=== PATIENT | male | born 1985 | race Caucasian/White ===

== ENCOUNTER 2018-09-21 11:11 | Emergency (ER) | payer MEDICAID ==
[~2018-09-21] VITALS: Ht 177.8 cm; Wt 95.7 kg
[2018-09-21] MEDS ORDERED: ALPR2TAB2 PO (11:34)
[2018-09-21] MEDS ORDERED: PROMETHAZINE 25 MG/ML, 1ML IM ONE (12:30)
[2018-09-21] MEDS ORDERED: KETOROLAC 30 MG/1 ML IM ONE (12:30)
[2018-09-21] MEDS ORDERED: PROMETHAZINE 25 MG/ML, 1ML ONE (12:47)
[2018-09-21] MEDS ORDERED: KETOROLAC 30 MG/1 ML ONE (12:48)
[2018-09-21 14:17] VITALS: BP 128/78
== END 2018-09-21 14:19 | disposition home or self-care (01) ==
LOC: ED 14:13
DX: F19.939 Other psychoactive substance use, unspecified with withdrawal, unspecified (principal)
CPT/HCPCS: 96372; 99284; J1885; J2550

== ENCOUNTER 2019-02-20 17:58 | Emergency (ER) | payer MEDICAID ==
[~2019-02-20] VITALS: Ht 180.3 cm; Wt 93.2 kg
[~2019-02-20 17:58] MED LIST: ALPR2TAB2 PO
[2019-02-20 18:03] VITALS: BP 149/80
[2019-02-20 18:31] LABS: BASOPHILS # (AUTO) 0.07 x10^3/uL (0-0.1); BASOPHILS % (AUTO) 1 % (0-1); EOSINOPHILS # (AUTO) 0.25 x10^3/uL (0-0.4); EOSINOPHILS % (AUTO) 3 % (1-7); LYMPHOCYTES # (AUTO) 1.94 x10^3/uL (1-3.4); LYMPHOCYTES % (AUTO) 23 % (22-44); MD NO; MEAN CORPUSCULAR HEMOGLOBIN 28.3 pg (27.5-34.5); MEAN CORPUSCULAR HGB CONC 33.1 g/dL (33.2-36.2); MEAN CORPUSCULAR VOLUME 85.6 fL (81-97); MEAN PLATELET VOLUME 8.3 fL (7.4-10.4); MONOCYTES # (AUTO) 0.82 x10^3/uL (0.2-0.8); MONOCYTES % (AUTO) 10 % (2-9); NEUTROPHILS # (AUTO) 5.38 x10^3/uL (1.8-6.8); NEUTROPHILS % (AUTO) 64 % (42-75); PLATELET COUNT 251 x10^3/uL (130-400); RED CELL DISTRIBUTION WIDTH 13.8 % (9.4-14.8)
--- NOTE | 2019-02-20 18:36 | NUR ---
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
== END 2019-02-20 19:12 | disposition left against medical advice (07) ==
LOC: ED 19:06
DX: M54.5 Low back pain (principal)
CPT/HCPCS: 36415; 72110; 85025; 99284

== ENCOUNTER 2019-02-21 02:14 | Emergency (ER) | payer MEDICAID ==
[~2019-02-21] VITALS: Ht 180.3 cm; Wt 80.0 kg
[2019-02-21 02:18] VITALS: BP 127/71
--- NOTE | 2019-02-21 03:01 | NUR ---
PT SLEEPING ON GURNEY, THIS RN ATTEMPTED MULTIPLE TIMES TO WAKE PT, PT NOT COOPERATIVE . PT ADVISED OF NEED FOR URINE SAMPLE AND PROVIDED WITH URINE CUP.
[2019-02-21 03:41] LABS: BASOPHILS # (AUTO) 0.07 x10^3/uL (0-0.1); BASOPHILS % (AUTO) 1 % (0-1); EOSINOPHILS # (AUTO) 0.12 x10^3/uL (0-0.4); EOSINOPHILS % (AUTO) 2 % (1-7); LYMPHOCYTES # (AUTO) 1.97 x10^3/uL (1-3.4); LYMPHOCYTES % (AUTO) 24 % (22-44); MD NO; MEAN CORPUSCULAR HEMOGLOBIN 28.5 pg (27.5-34.5); MEAN CORPUSCULAR HGB CONC 33.5 g/dL (33.2-36.2); MEAN CORPUSCULAR VOLUME 85.2 fL (81-97); MEAN PLATELET VOLUME 8.3 fL (7.4-10.4); MONOCYTES # (AUTO) 0.82 x10^3/uL (0.2-0.8); MONOCYTES % (AUTO) 10 % (2-9); NEUTROPHILS % (AUTO) 64 % (42-75); PLATELET COUNT 248 x10^3/uL (130-400); RED BLOOD COUNT 5.15 x10^6/uL (4.38-5.82); RED CELL DISTRIBUTION WIDTH 13.8 % (9.4-14.8)
--- NOTE | 2019-02-21 03:46 | NUR ---
URINE SPECIMEN PROVIDED BY PT, SENT TO LAB
[2019-02-21 03:47] LABS: ALANINE AMINOTRANSFERASE 65 U/L (12-78); ALBUMIN 4.2 g/dL (3.4-5.0); ANION GAP 7 mmol/L (5-15); CALCIUM 9.4 mg/dL (8.5-10.1); CHLORIDE 108 mmol/L (98-107); CREATININE 0.89 mg/dL (0.7-1.3)
[2019-02-21 03:50] LABS: ALKALINE PHOSPHATASE 71 U/L (45-117); BILIRUBIN,TOTAL 0.9 mg/dL (0.2-1.0); TOTAL PROTEIN 7.7 g/dL (6.4-8.2)
[2019-02-21 04:03] LABS: AMPHETAMINE SCREEN, URINE Positive (Negative); BARBITURATE SCREEN, URINE Negative (Negative); BENZODIAZEPINE SCREEN, URINE Positive (Negative); CANNABINOID SCREEN, URINE Positive (Negative); COCAINE SCREEN, URINE Negative (Negative); METHADONE SCREEN, URINE Negative (Negative); OPIATE SCREEN, URINE Positive (Negative)
--- NOTE | 2019-02-21 04:45 | NUR ---
[place], WOKEN UP AND PROVIDED WITH DISCHARGE INSTRUCTIONS AND ASKED TO GET DRESSED. PT [facility] WHEN THIS RN CHECKED PROGRESS. PT REFUSING TO GET DRESSED AND LEAVE AT THIS TIME. SECURITY CALLED TO ESCORT PT OUT.
--- NOTE | 2019-02-21 04:47 | NUR ---
Patient/Caregiver given discharge instructions and they have confirmed that they understand the instructions. Patient ambulatory with steady gait.
[2019-02-21 04:59] LABS: CULTURE INDICATED? NO; MICROSCOPIC NOT IND
== END 2019-02-21 05:15 | disposition home or self-care (01) ==
LOC: ED 02:59
DX: R19.7 Diarrhea, unspecified (principal); T40.7X5A Adverse effect of cannabis (derivatives), initial encounter; T42.4X5A Adverse effect of benzodiazepines, initial encounter; F15.10 Other stimulant abuse, uncomplicated; F19.10 Other psychoactive substance abuse, uncomplicated; Z72.9 Problem related to lifestyle, unspecified; Z75.9 Unspecified problem related to medical facilities and other health care; Z91.14 Patient's other noncompliance with medication regimen; Z63.8 Other specified problems related to primary support group; Y92.89 Other specified places as the place of occurrence of the external cause
CPT/HCPCS: 36415; 80053; 80307; 81003; 83690; 85025; 99283

== ENCOUNTER 2020-06-17 10:22 | Emergency (ER) | payer MEDICAID ==
[~2020-06-17] VITALS: Ht 177.8 cm; Wt 98.7 kg
[2020-06-17 10:29] VITALS: BP 128/64
== END 2020-06-17 11:32 | disposition home or self-care (01) ==
LOC: ED 10:50
DX: J45.20 Mild intermittent asthma, uncomplicated (principal); Z76.0 Encounter for issue of repeat prescription
CPT/HCPCS: 99281

== ENCOUNTER 2020-08-14 16:09 | Emergency (ER) | payer MEDICAID ==
[~2020-08-14] VITALS: Ht 177.8 cm; Wt 100.9 kg
[2020-08-14 16:12] VITALS: BP 119/87
--- NOTE | 2020-08-14 19:12 | NUR ---
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
== END 2020-08-14 19:33 | disposition home or self-care (01) ==
LOC: ED 19:25
DX: B37.89 Other sites of candidiasis (principal); J45.909 Unspecified asthma, uncomplicated
CPT/HCPCS: 82962; 99282